=== PATIENT | female | born 1945 | race Two or more races ===

== ENCOUNTER 2017-06-10 06:10 | Day surgery (SDC) | payer OTHER ==
[~2017-06-10 06:10] MED LIST: ACCUNEB1.25 MG/3 IH; ADVAIR HFA 230/12 GM IH; CAPOTEN25 MG PO; DULERA 200 MCG/13 GM; LOSARTAN-HCTZ1 EAC1; PULMICORT90 MCG/AER IH; THEOPHYLLINE A200 MG PO
== END 2017-06-10 17:35 | disposition home or self-care (01) ==
LOC: CIR.AMB 06:10
DX: M19.031 Primary osteoarthritis, right wrist (principal)

== ENCOUNTER 2018-12-21 08:46 | Outpatient (CLI) | payer OTHER | END 2018-12-21 15:00 | disposition home or self-care (01) | LOC: LAB 08:46 | DX: I10 Essential (primary) hypertension (principal); E11.9 Type 2 diabetes mellitus without complications; E03.8 Other specified hypothyroidism; E78.2 Mixed hyperlipidemia ==

== ENCOUNTER 2019-04-19 18:39 | Emergency (ER) | payer OTHER ==
[~2019-04-19] VITALS: Ht 154.9 cm; Wt 66.7 kg
[2019-04-19] MEDS ORDERED: AVALIDE 300-121 EACH PO (19:21)
[2019-04-19] MEDS ORDERED: ALPHAGAN P5 ML OP (19:22)
[2019-04-19] MEDS ORDERED: FLOVENT DISKUS50 MCG IH (19:22)
[2019-04-19] MEDS ORDERED: DORZOLAMIDE HCL10 ML OP (19:22)
[2019-04-19] MEDS ORDERED: SYMBICORT 80/10.2 GM IH (19:22)
[2019-04-19] MEDS ORDERED: SINGULAIR10 MG PO (19:23)
[2019-04-19] MEDS ORDERED: NEURONTIN300 MG PO (19:23)
[2019-04-19] MEDS ORDERED: SIMVASTATIN5 MG PO (19:23)
== END 2019-04-20 00:47 | disposition home or self-care (01) ==
LOC: ER 18:39
DX: I16.0 Hypertensive urgency (principal); I10 Essential (primary) hypertension

== ENCOUNTER 2019-05-05 08:25 | Outpatient (CLI) | payer OTHER ==
[~2019-05-05 08:25] MED LIST changes: +ALPHAGAN P5 ML OP; +AVALIDE 300-121 EACH PO; +DORZOLAMIDE HCL10 ML OP; +FLOVENT DISKUS50 MCG IH; +NEURONTIN300 MG PO; +SIMVASTATIN5 MG PO; +SINGULAIR10 MG PO; +SYMBICORT 80/10.2 GM IH
== END 2019-05-05 08:31 | disposition home or self-care (01) ==
LOC: LAB 08:25
DX: N39.0 Urinary tract infection, site not specified (principal); B96.1 Klebsiella pneumoniae [K. pneumoniae] as the cause of diseases classified elsewhere

== ENCOUNTER 2023-04-30 20:36 | Emergency (ER) | payer OTHER ==
[~2023-04-30] VITALS: Ht 165.1 cm; Wt 65.8 kg
[2023-04-30] MEDS ORDERED: PLAVIX75 MG PO (20:51)
[2023-04-30] MEDS ORDERED: OMEPRAZOLE MAGN20 MG PO (20:52)
[2023-04-30] MEDS ORDERED: HYOSCYAMINE0.125 M1 SL (21:07)
[2023-04-30] MEDS ORDERED: METHYLPREDNISOLONE SOD SUCC 125 MG VIAL IV STA (21:34)
[2023-04-30] MEDS ORDERED: HYDROCODONE/CHLORPHEN P-STIREX 5 ML ML PO STA (21:37)
[2023-04-30] MEDS ORDERED: ALBUTEROL SULFATE 3 ML/2.5 MG AMPUL.NEB IH SCH (21:45)
[2023-04-30] MEDS ORDERED: IPRATROPIUM BROMIDE 0.5 MG/2.5 ML AMPUL.NEB IH SCH (21:45)
[2023-04-30 21:54] LABS: HEMOGLOBIN 12.1 g/dL (12.0-15.00); MEAN CELL VOLUME 86.1 fL (80.00-100.00); MEAN CORPUSCULAR HEMOGLOBIN 28.9 pg (27.00-32.0); MEAN CORPUSCULAR HGB CONC 33.5 g/dl (32.0-36.0); PLATELET COUNT 239 K/uL (150-450); RED BLOOD COUNT 4.18 M/uL (4.00-6.00); RED CELL DISTRIBUTION WIDTH 15.4 % (11.5-14.5)
[2023-04-30 22:41] LABS: ABG PH 7.435 (7.35-7.45); ABG PO2 101.4 mmHg (80-100); ABG pCO2 37.1 mmHg (35-45); BASE EXCESS 0.5 mmol/l; BICARBONATE 24.4 mmol/l (23-25); Tco2 25.5 mmol/l
[2023-04-30 22:42] LABS: allen test SATISFACTORY; o2 21 %; puncture site RADIAL LEFT
== END 2023-05-01 01:59 | disposition home or self-care (01) ==
LOC: ER 20:36
DX: J10.1 Influenza due to other identified influenza virus with other respiratory manifestations (principal); J45.991 Cough variant asthma; R05.9 Cough, unspecified; Z20.822 Contact with and (suspected) exposure to COVID-19; Z88.0 Allergy status to penicillin; Z91.041 Radiographic dye allergy status
CPT/HCPCS: 36415; 71045; 82803; 94644; 99283; J2930

== ENCOUNTER 2023-10-23 14:04 | Emergency (ER) | payer OTHER ==
[~2023-10-23] VITALS: Ht 152.4 cm; Wt 67.6 kg
[~2023-10-23 14:04] MED LIST changes: +HYOSCYAMINE0.125 M1 SL; +OMEPRAZOLE MAGN20 MG PO; +PLAVIX75 MG PO
[2023-10-23] MEDS ORDERED: ACETAMINOPHEN 500 MG GEL..CAP PO STA (14:37)
[2023-10-23] MEDS ORDERED: ACETAMINOPHEN 500 MG GEL..CAP PO ONE ×3 (14:59→22:38)
== END 2023-10-23 22:45 | disposition home or self-care (01) ==
LOC: ER 14:06
DX: S09.8XXA Other specified injuries of head, initial encounter (principal); W19.XXXA Unspecified fall, initial encounter; Y93.89 Activity, other specified; Y92.89 Other specified places as the place of occurrence of the external cause; Y99.8 Other external cause status; M12.569 Traumatic arthropathy, unspecified knee; I10 Essential (primary) hypertension; E11.9 Type 2 diabetes mellitus without complications; Z88.0 Allergy status to penicillin; Z91.041 Radiographic dye allergy status

== ENCOUNTER 2024-05-31 07:16 | Emergency (ER) | payer OTHER ==
[~2024-05-31] VITALS: Ht 152.4 cm; Wt 65.8 kg
[2024-05-31] MEDS ORDERED: SKELAGESIC (07:25)
[2024-05-31] MEDS ORDERED: FOLIC ACID480 MCG PO (07:25)
[2024-05-31] MEDS ORDERED: OMEPRAZOLE-BIC1 EAC1 (07:26)
[2024-05-31] MEDS ORDERED: COLESTIPOL HCL1 GM PO (07:26)
[2024-05-31] MEDS ORDERED: PROAIR RESPICL90 MCG (07:26)
[2024-05-31] MEDS ORDERED: BUDEO.25 IH (07:27)
[2024-05-31] MEDS ORDERED: METHYLPREDNISOLONE SOD SUCC 125 MG VIAL ONE (08:44)
[2024-05-31] MEDS ORDERED: WATER FOR INJ.,BACTERIOSTATIC 30 ML VIAL IJ ONE (08:44)
[2024-05-31] MEDS ORDERED: MAGNESIUM SULFATE IN WATER 2 GM/50 ML PIGGYBAG IV ONE (08:45)
[2024-05-31] MEDS ORDERED: METHYLPREDNISOLONE SOD SUCC 125 MG VIAL IV ONE (08:45)
[2024-05-31] MEDS ORDERED: LEVALBUTEROL HCL 1.25 MG/3 ML SOLUTION IH ONE ×2 (08:45→09:26)
== END 2024-05-31 10:11 | disposition home or self-care (01) ==
LOC: ER 07:18
DX: J45.909 Unspecified asthma, uncomplicated (principal); Z88.2 Allergy status to sulfonamides; Z91.013 Allergy to seafood; Z88.0 Allergy status to penicillin; Z88.6 Allergy status to analgesic agent; Z91.041 Radiographic dye allergy status; K58.8 Other irritable bowel syndrome; I10 Essential (primary) hypertension; H40.89 Other specified glaucoma; E11.9 Type 2 diabetes mellitus without complications
CPT/HCPCS: 71046; 96365; 99283; J3475; J3490